=== PATIENT | male | born 1975 | race Caucasian/White ===

== ENCOUNTER 2017-02-20 13:11 | Emergency (ER) | payer OTHER ==
[2017-02-20] MEDS ORDERED: SODIUM CHLORIDE 1,000 ML IV STA (13:23)
[2017-02-20] MEDS ORDERED: IBUPROFEN 400 MG TABLET (FP) PO ONE ×2 (13:23→13:56)
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
[2017-02-20 14:23] VITALS: BP 142/87; PULSE 92; TEMP 98.9; BMI 36.1
== END 2017-02-20 15:08 | disposition home or self-care (01) ==
LOC: JER 13:11
DX: T67.5XXA Heat exhaustion, unspecified, initial encounter (principal); M54.5 Low back pain; J70.5 Respiratory conditions due to smoke inhalation; X58.XXXA Exposure to other specified factors, initial encounter; Y93.89 Activity, other specified; Y92.9 Unspecified place or not applicable; Y99.0 Civilian activity done for income or pay
CPT/HCPCS: 82375; 99281-25

== ENCOUNTER 2019-09-17 15:40 | Emergency (ER) | payer BC, OTHER ==
[2019-09-17 16:18] VITALS: BP 157/82; PULSE 77; TEMP 98.5; BMI 35.4
--- NOTE | 2019-09-17 16:32 | PDOC ---
History of Present Illness - General Chief Complaint: Pain Stated Complaint: LEG PAIN Time Seen by Provider: 09/17/19 16:19 - History of Present Illness Initial Comments: 09/17/19 16:25 CHIEF COMPLAINT: L leg pain HISTORY OF PRESENT ILLNESS: 44 yo M presents to [facility] with left leg pain since last night. Patient reports waking up in the middle of the night with pain behind L knee. Patient states he is concerned that he has a blood clot because his brother has had a history of DVTs. Patient denies any calf pain, or shortness of breath, denies any recent surgery or travel. No recent travel or sick contacts. PAST MEDICAL HISTORY: Denies past medical history FAMILY HISTORY: Denies SOCIAL HISTORY: Denies tobacco, alcohol, illicit drug use. SURGICAL HISTORY: Denies ALLERGIES: No known drug allergies REVIEW OF SYSTEMS General/Constitutional: Denies fever or chills. Denies weakness, weight change. HEENT: Denies change in vision. Denies ear pain or discharge. Denies sore throat. Cardiovascular: Denies chest pain or shortness of breath. Respiratory: Denies cough, wheezing, or hemoptysis. Gastrointestinal: Denies nausea, vomiting, diarrhea or constipation. Denies rectal bleeding. Genitourinary: Denies dysuria, frequency, or change in urination. Musculoskeletal: L leg pain. Denies joint or muscle swelling or pain. Denies neck or back pain. Skin and breasts: Denies rash or easy bruising. Neurologic: Denies headache, vertigo, loss of consciousness, or loss of sensation. Psychiatric: Denies depression or anxiety. PHYSICAL EXAM General Appearance: Well-appearing, appropriately dressed. No apparent distress , no intoxication. HEENT: EOMI, PERRLA, normal ENT inspection, normal voice, TMs normal, pharynx normal. No conjunctival pallor. No photophobia, scleral icterus. Neck: Supple. Trachea midline. No tenderness, rigidity, carotid bruit, stridor , lymphadenopathy, or thyromegaly. Respiratory/Chest: Lungs CTAB. No shortness of breath, chest tenderness, respiratory distress, accessory muscle use. No crackles, rales, rhonchi, stridor , wheezing, dullness Cardiovascular: RRR. S1, S2. No JVD, murmur, bradycardia, tachycardia. Vascular Pulses: Dorsalis-Pedis (R): 2+, Dorsalis-Pedis (L): 2+ Gastrointestinal/Abdominal: Normal bowel sounds. Abdomen soft, non-distended. No tenderness or rebound tenderness. No organomegaly, pulsatile mass, guarding , hernia, hepatomegaly, splenomegaly. Lymphatic: No adenopathy, tenderness. Musculoskeletal/Extremities: Tenderness to posterior L knee. Negative Lamberto's , no calf tenderness. No swelling to L leg. Normal inspection. FROM of all extremities, normal capillary refill. Pelvis Stable. No CVA tenderness. No tenderness to extremities, pedal edema, swelling, erythema or deformity. Integumentary: Appropriate color, dry, warm. No cyanosis, erythema, jaundice or rash Neurologic: it applications analyst II-XII intact. Fully oriented, alert. Appropriate mood/affect. Motor strength 5/5. No appreciable EOM palsy, facial droop or sensory deficit. Past History - Past Medical History Allergies/Adverse Reactions: Allergies Allergy/AdvReac Type Severity Reaction Status Date / Time Sulfa (Sulfonamide Allergy Mild Verified 09/17/19 17:04 Antibiotics) [Sulfa(Sulfonamide Antibiotics)] Home Medications: Ambulatory Orders Naproxen 500 mg PO BID #30 tablet 09/17/19 CVA: No COPD: No CHF: No DVT: No Dementia: No - Immunization History Td Vaccination: (unknown) Immunization Up to Date: No - Psycho Social/Smoking Cessation Hx Smoking Status: Yes Smoking History: Never smoked Years of Tobacco Use: 10 Have you smoked in the past 12 months: No Number of Cigarettes Smoked Daily: 10 Cigars Per Day: 0 Hx Alcohol Use: No Drug/Substance Use Hx: No Substance Use Type: None *Physical Exam - Vital Signs Last Vital Signs Temp Pulse Resp BP Pulse Ox 98.5 F 77 16 157/82 96 09/17/19 16:14 09/17/19 16:14 09/17/19 16:14 09/17/19 16:14 09/17/19 16:14 ED Treatment Course - RADIOLOGY Radiology Studies Ordered: Category Date Time Status DUPLEX VASCUL US-1 LEG [US] Stat Ultrasound 09/17/19 16:20 Ordered Medical Decision Making - Medical Decision Making 09/17/19 16:32 44 yo M presents to fast track with left leg pain since last night. -duplex US Discharge - Discharge Information Problems reviewed: Yes Clinical Impression/Diagnosis: Posterior left knee pain Condition: Stable Disposition: HOME - Admission No - Additional Discharge Information Prescriptions: Naproxen 500 mg PO BID #30 tablet - Follow up/Referral Referrals: Paul Call DO [Staff Physician] - - Patient Discharge Instructions Patient Printed Discharge Instructions: DI for Leg Pain Additional Instructions: Please take medications as prescribed. Follow up with orthopedics if symptoms persist. If you develop any swelling to your leg, palpitations, worsening pain , or any new or worsening symptoms, please return to the ER. - Post Discharge Activity Work/Back to School Note: Back to Work
[2019-09-17] MEDS ORDERED: KETOROLAC TROMETHAMINE 60 MG/2 ML VIAL IM ONE (17:27)
[2019-09-17] MEDS ORDERED: KETOROLAC TROMETHAMINE 60 MG/2 ML VIAL ONE (17:28)
== END 2019-09-17 17:46 | disposition home or self-care (01) ==
LOC: JERFT 15:40
PROC: 3E0233Z Introduction of Anti-inflammatory into Muscle, Percutaneous Approach (ICD-10-PCS; principal; 2019-09-17)
DX: M25.562 Pain in left knee (principal); Z87.891 Personal history of nicotine dependence
CPT/HCPCS: 93971-TC; 99281-25

== ENCOUNTER 2020-11-16 12:24 | Emergency (ER) | payer OTHER ==
[2020-11-16 12:57] VITALS: BP 144/66; PULSE 82; TEMP 98; BMI 26.6
[2020-11-16] MEDS ORDERED: IBUPROFEN 600 MG TABLET (FP) PO ONE ×2 (13:23→13:25)
== END 2020-11-16 13:42 | disposition home or self-care (01) ==
LOC: JERFT 12:24
DX: M25.531 Pain in right wrist (principal)
CPT/HCPCS: 73110-TC-RT-FY; 73130-TC-RT-FY; 99283-25

== ENCOUNTER 2021-09-10 09:11 | Emergency (ER) | payer OTHER ==
[2021-09-10 09:17] VITALS: BP 159/93; PULSE 72; TEMP 98.2; BMI 22.1
== END 2021-09-10 13:31 | disposition home or self-care (01) ==
LOC: JERFT 09:11
DX: M79.662 Pain in left lower leg (principal); W10.8XXA Fall (on) (from) other stairs and steps, initial encounter; X50.0XXA Overexertion from strenuous movement or load, initial encounter
CPT/HCPCS: 93971-TC; 99284-25